=== PATIENT | female | born 1980 | race Caucasian/White ===

== ENCOUNTER 2022-11-18 12:11 | Emergency (ER) | payer MEDICAID ==
[~2022-11-18] VITALS: Ht 167.6 cm; Wt 95.0 kg
[~2022-11-18 12:11] MED LIST: ALBU6.7H14 INH; IBUP-1986 PO; METH-360 PO
[2022-11-18 12:20] VITALS: BP 144/92; PULSE 87; RESP 18; TEMP 98.7; O2SAT 96
[2022-11-18] MEDS ORDERED: triamcinolone acetonide 0.5% cream 15gm TP SCH (12:42)
== END 2022-11-18 12:50 | disposition home or self-care (01) ==
LOC: ER 12:12
DX: L03.011 Cellulitis of right finger (principal); G43.909 Migraine, unspecified, not intractable, without status migrainosus; Z79.899 Other long term (current) drug therapy
CPT/HCPCS: 99283